=== PATIENT | female | born 1990 ===

== ENCOUNTER 2018-02-24 16:58 | Emergency (ER) | payer OTHER ==
[2018-02-24 17:04] VITALS: BMI 32.5
--- NOTE | 2018-02-24 17:10 | C.PDOC ---
History Of Present Illness 27-year-old female presents to the emergency department with complaints of pelvic pressure and intermittent vaginal bleeding for the past 1 month ( initially heavy but then just spotting until 2 weeks ago). Patient notes a Hx of irregular menstrual periods. She states that over the past two weeks, she developed bright red blood when she urinates. Patient denies vomiting, diarrhea , back pain, possiblity of , fever/chills, dysuria, or any other associated symptoms. No other complaints at this time. LMP was two weeks ago. Time Seen by Provider: 02/24/18 17:09 Chief Complaint (Nursing): Abdominal Pain History Per: Patient History/Exam Limitations: no limitations Onset/Duration Of Symptoms: Days Current Symptoms Are (Timing): Still Present Severity: Moderate Location Of Pain/Discomfort: Suprapubic Past Medical History Reviewed: Historical Data, Nursing Documentation, Vital Signs Vital Signs: Last Vital Signs Temp 97.8 F 02/24/18 17:04 Pulse 94 H 02/24/18 18:29 Resp 18 02/24/18 18:29 BP 119/74 02/24/18 18:29 Pulse Ox 99 02/24/18 18:52 - Medical History PMH: Gall Bladder Disease, Kidney Stones, Chronic Kidney Disease Surgical History: Carotid Endarterectomy, Cholecystectomy, - [facility] Procedures LAPAROSCOPIC CHOLECYSTECTOMY (05/02/14) LOW CERVICAL (04/13/14) Family History: States: No Known Family Hx - Social History Hx Tobacco Use: No Hx Alcohol Use: No Hx Substance Use: No - Immunization History Hx Tetanus Toxoid Vaccination: No Hx Influenza Vaccination: No Hx Pneumococcal Vaccination: No Review Of Systems Constitutional: Negative for: Fever, Chills Gastrointestinal: Negative for: Nausea, Vomiting Genitourinary: Positive for: Hematuria, Vaginal Bleeding, Pelvic Pain (+pressure ). Negative for: Dysuria, Frequency, Incontinence, Vaginal Discharge, Rash Musculoskeletal: Negative for: Back Pain Skin: Negative for: Rash Physical Exam - Physical Exam Appears: Well, Non-toxic, No Acute Distress Skin: Normal Color, Warm, Dry, No Rash Eye(s): bilateral: Normal Inspection Oral Mucosa: Moist Cardiovascular: Rhythm Regular Respiratory: Normal Breath Sounds, No Rales, No Rhonchi, No Wheezing Gastrointestinal/Abdominal: Bowel Sounds, Soft, Tenderness (Suprapubic mild TTP , (-)McBurney's.), No Guarding, No Rebound Back: No CVA Tenderness Extremity: Normal ROM, No Deformity, No Swelling Neurological/Psych: Oriented x3 ED Course And Treatment - Laboratory Results Result Diagrams: 02/24/18 17:29 02/24/18 17:29 O2 Sat by Pulse Oximetry: 99 (RA) Pulse Ox Interpretation: Normal Progress Note: Bloodwork, UA, transvaginal US ordered and reviewed. Patient given IV NS bolus, IV toradol. Disposition - Disposition Disposition Time: 19:00 Condition: STABLE Forms: [employer] (Nepali) - Clinical Impression Clinical Impression: Vaginal bleeding - Scribe Statement The provider has reviewed the documentation as recorded by the Scribe (Jenni Antonio) All medical record entries made by the Scribe were at my direction and personally dictated by me. I have reviewed the chart and agree that the record accurately reflects my personal performance of the history, physical exam, medical decision making, and the department course for this patient. I have also personally directed, reviewed, and agree with the discharge instructions and disposition. Physician Patient Turnover Patient Signed Over To: Jean Paul Coates Handoff Comments: pending transvaginal US, reassessment
[2018-02-24 17:33] LABS: BASO % 0.4 % (0.0-2.0); EOS # 0.1 K/uL (0.0-0.7); HEMOGLOBIN 12.4 g/dL (11.0-16.0); LYMPH # 1.6 K/uL (1.0-4.3); LYMPH % 22.1 % (20.0-40.0); MEAN CELL VOLUME 80.2 fL (81.0-99.0); MEAN CORPUSCULAR HEMOGLOBIN 26.4 pg (27.0-31.0); MEAN CORPUSCULAR HGB CONC 32.9 g/dL (33.0-37.0); MEAN PLATELET VOLUME 9.3 fL (7.2-11.7); MONO # 0.4 K/uL (0.0-0.8); MONO % 5.3 % (0.0-10.0); NEUT # 5.3 K/uL (1.8-7.0); NEUT % 71.2 % (50.0-75.0); NRBC % 0.1 % (0.0-2.0); RBC 4.71 Mil/uL (3.80-5.20); RED CELL DISTRIBUTION WIDTH 15.6 % (11.5-14.5); WHITE BLOOD COUNT 7.4 K/uL (4.8-10.8)
[2018-02-24 17:37] LABS: SQUAMOUS EPITHIAL 1 /hpf (0-5); URINE BACTERIA RARE (<OCC); URINE BILIRUBIN NEGATIVE (NEGATIVE); URINE BLOOD 3+ (NEGATIVE); URINE CLARITY Hazy (Clear); URINE COLOR Yellow (YELLOW); URINE GLUCOSE (UA) NORMAL (Normal); URINE LEUKOCYTE ESTERASE NEG Leu/uL (Negative); URINE PROTEIN NEGATIVE (NEGATIVE); URINE UROBILINOGEN NORMAL mg/dL (0.2-1.0)
[2018-02-24 17:46] LABS: ALB/GLOB RATIO 1.4 (1.0-2.1); ALBUMIN 4.7 g/dL (3.5-5.0); ALT/SGPT 28 U/L (9-52); AST/SGOT 15 U/L (14-36); BLOOD UREA NITROGEN 7 mg/dL (7-17); CALCIUM 9.5 mg/dl (8.6-10.4); GFR AFRICAN-AMERICAN > 60; GFR NON-AFRICAN AMERICAN > 60
[2018-02-24 19:41] VITALS: RESP 16
--- NOTE | 2018-02-24 20:02 | US ---
EXAM: US Pelvis Complete, Transabdominal CLINICAL HISTORY: 27 years old, female; Signs and symptoms; Other: Pelvic pain / bleeding; Prior surgery; Surgery date: 6+ months; Surgery type: 2 c-sections; Additional info: Pelvic pain, vaginal bleeding TECHNIQUE: Real-time transabdominal pelvic ultrasound (complete) with image documentation. COMPARISON: No relevant prior studies available. FINDINGS: Uterus/cervix: The uterus measures 8.3 x 4.8 x 6.9 cm. The endometrial stripe measures 1 cm in thickness. No myometrial mass. Right ovary: The right ovary is not seen is a separate structure. Left ovary: The left ovary measures 3.2 x 1.6 x 3.1 cm. Blood flow is seen in the left ovary on color Doppler examination. Free fluid: No free fluid. Bladder: The bladder is poorly distended. IMPRESSION: 1. Nonvisualization of the right ovary. This may be related to poor bladder distention. Please see the report from the transvaginal portion of the examination EXAM: US Pelvis, Transvaginal EXAM DATE/TIME: Exam ordered 02/24/2018 5:25 PM CLINICAL HISTORY: 27 years old, female; Signs and symptoms; Other: Pelvic pain / bleeding; Prior surgery; Surgery date: 6+ months; Surgery type: 2 c-sections; Additional info: Pelvic pain, vaginal bleeding TECHNIQUE: Real-time transvaginal pelvic ultrasound (complete) with image documentation. Transvaginal imaging was used for better evaluation of the endometrium and adnexa. COMPARISON: US - TRANSVAGINAL 2015-11-24 14:40 FINDINGS: Uterus/cervix: A small amount of fluid is noted within the endocervical canal. A small amount of complex fluid is noted in the fundic portion of the endometrial canal Endometrium stripe measures 1.3 cm in thickness. Right ovary: The right ovary measures 3.2 x 1.8 x 3 cm. Blood flow is seen within the right ovary on pulsed Doppler examination. Follicles are noted within the right ovary. Left ovary: The left ovary measures 2.8 x 1.8 x 2.3 cm. Subcentimeter follicles are present. Blood flow is seen in the left ovary on color Doppler and pulsed Doppler examination.. Free fluid: No free fluid. Bladder: Empty bladder which cannot be evaluated with this probe. Vasculature: No areas of abnormal vascularity are noted within the endometrial stripe on color Doppler examination. No focal areas of abnormal vascularity are noted the surrounding the fluid within the endocervical canal. IMPRESSION: 1. Fluid noted within the endometrial and endocervical canal. This is consistent with the patient's history of vaginal bleeding. No focal lesions are noted within the endometrial canal
[2018-02-24 20:43] VITALS: BP 121/80; PULSE 82; TEMP 98.3; O2SAT 100
== END 2018-02-24 20:43 | disposition home or self-care (01) ==
LOC: C.ER 16:58
DX: N93.9 Abnormal uterine and vaginal bleeding, unspecified (principal)
CPT/HCPCS: 76830; 76856; 80053; 81001; 84702; 85025; 86850; 86900; 96374; 99285; J1885

== ENCOUNTER 2018-11-05 12:15 | Outpatient (CLI) | payer OTHER | END 2018-11-05 12:16 | disposition home or self-care (01) | LOC: C.LAB 12:15 | DX: Z01.419 Encounter for gynecological examination (general) (routine) without abnormal findings (principal) ==